=== PATIENT | male | born 1995 | race Caucasian/White ===

== ENCOUNTER 2017-12-21 00:35 | Emergency (ER) | payer OTHER ==
--- NOTE | 2017-12-21 09:01 | RAD ---
RIGHT FOOT RADIOGRAPHS: Date: 12-21-17 Provided Clinical History: Right foot pain status post injury. FINDINGS: There is a corticated ossific density seen at the anterior margin of the calcaneus at the lateral asp ect on the frontal view, which likely reflects an accessory ossification rather than fracture. No def inite evidence for fracture. Alignment appears anatomic. Joint spaces appear preserved. Soft tissue s welling is noted overlying the dorsum of the foot. IMPRESSION: No definite evidence for an acute osseous abnormality. If there is persistent clinical concern, conse rvative management and follow up imaging are advised. POS: OFF
== END 2017-12-21 01:29 | disposition home or self-care (01) ==
LOC: ERS 00:35
DX: S92.201A Fracture of unspecified tarsal bone(s) of right foot, initial encounter for closed fracture (principal); F41.9 Anxiety disorder, unspecified; F17.210 Nicotine dependence, cigarettes, uncomplicated; I10 Essential (primary) hypertension; W22.8XXA Striking against or struck by other objects, initial encounter
CPT/HCPCS: 29515

== ENCOUNTER 2018-04-21 01:35 | Emergency (ER) | payer OTHER | END 2018-04-21 01:50 | disposition home or self-care (01) | LOC: ERS 01:35 | DX: F10.129 Alcohol abuse with intoxication, unspecified (principal); F41.9 Anxiety disorder, unspecified; I10 Essential (primary) hypertension; F17.210 Nicotine dependence, cigarettes, uncomplicated | CPT/HCPCS: 99284 ==